=== PATIENT | male | born 1990 | race Caucasian/White ===

== ENCOUNTER 2016-04-27 12:45 | Emergency (ER) | payer SELFPAY ==
[2016-04-27 13:45] VITALS: BP 155/79; TEMP 98.2; BMI 26.5
--- NOTE | 2016-04-27 14:01 | EDPRACDOC ---
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 PT IS REQUIRED TO HAVE HEART RATE LESS THAN 100. PT STATES THAT HE DID DRINK A MONSTER CAFFEINE DRINK PRIOR TO PERFORMING THE EXAM. PT HAS NO PMH/MEDS. NO COMPLAINTS PER PT. Symptoms Started: Reports: At Rest Relevant History: Reports: None Heart Rate (bpm): 102 Pulse is: Rapid Worsens with: Reports: Nothing Associated signs & symptoms: Reports: None Chest Pain Location: Reports: No Pain Pain Quality: Reports: None Pain Radiation: Reports: None ED Past Medical History - History Reviewed Yes Nurses notes reviewed and agree except as marked - Patient Medical History Psychological History: Denies: Depression - Social Medical History Smoking Status: Former smoker EDM Review of Systems - Review of Systems ROS Negative Except as Marked: Yes All systems reviewed and were negative except as marked Constitutional: No Symptoms Reported Respiratory: No Symptoms Reported Cardiovascular: No Symptoms Reported Gastrointestinal: No Symptoms Reported Neurological: No Symptoms Reported Musculoskeletal: No Symptoms Reported Integumentary: No Symptoms Reported - Physical Exam Constitutional: Alert (Awake), No apparent distress Oriented to: Time, Person, Place Last recorded Vital Signs: Last Vital Signs Temp 98.2 F 04/27/16 13:42 Pulse 100 04/27/16 13:42 Resp 18 04/27/16 13:42 BP 155/79 04/27/16 13:42 Pulse Ox 96 04/27/16 13:42 Oxygen Pulse Oxygen Saturation 96 O2 Device Room Air Oxygen Flow Rate Fraction of Inspired Oxygen ( FIO2) - HEENT Head: Normal Eye Exam: Normal Neck: Normal, Denies Pain, Midline - Respiratory/Cardiovascular Respiratory: Normal - CTA Cardiovascular: Normal - GI Palpation: Normal Tenderness: Non tender - Musculoskeletal Back: Normal Extremities: Normal - Integumentary Skin: Normal Lymphatics: Normal - Neurologic Cerebellar: Normal Mood Description: Normal Thought: Coherent Perception: Normal - EKG EKG #1 Initial EKG Time: 14:03 -: Yes EKG interpreted by me Rate: bpm: 98 [place]: Normal Rhythm: NSR Block: None Hypertrophy: None ST: Normal - Additional Information Additional Information: CASE DISCUSSED WITH DR. JHAVERI. EKG UNREMARKABLE. VSS. NO TACHYCARDIA NOW. PT HAS NO COMPLAINTS. NO MURMURS/GALLOPS. OK FOR PHYSICAL EXAM. COUNSELED PT ON HIGH CAFFEINE INTAKE. Decision Time to Discharge: 14:03 - Departure Disposition: Home Condition: Good Final Diagnosis: Caffeine abuse, episodic Instructions: Palpitations (ED) Education/Counseling Given To: Patient Education/Counseling Given Regarding: Diagnosis, Treatment, Follow Up Referrals: None,No Provider [Primary Care Provider] - One Week Additional Instructions: STOP DRINKING MONSTER DRINKS. THEY'RE BAD FOR YOU.
[2016-04-27 14:03] VITALS: PULSE 102
== END 2016-04-27 14:15 | disposition home or self-care (01) ==
LOC: EDMC 12:45
DX: F15.10 Other stimulant abuse, uncomplicated (principal)
CPT/HCPCS: 93005; 99282